=== PATIENT | female | born 1985 | race Caucasian/White ===

== ENCOUNTER 2020-03-17 12:39 | Day surgery (SDC) | payer OTHER ==
[2020-03-13 14:32] VITALS: BMI 39.0
[2020-03-17] MEDS ORDERED: LIDOCAINE HCL/PF 2% SDV 5ML VIAL ONE (13:03)
[2020-03-17] MEDS ORDERED: PROPOFOL 20 ML ONE (13:03)
[2020-03-17 13:26] VITALS: TEMP 97.8
[2020-03-17 13:41] VITALS: BP 114/65; PULSE 75
--- NOTE | 2020-03-21 22:56 | OP ---
DATE OF OPERATION: 03/17/2020 PREOPERATIVE DIAGNOSIS: Weight gain after prior bariatric surgery. POSTOPERATIVE DIAGNOSIS: Dilated gastric sleeve. PROCEDURE: Upper endoscopy/esophagogastroduodenoscopy. SPECIMEN: None. ANESTHESIA: MAC. REASON FOR PROCEDURE: This is a 34-year-old female who had a prior bariatric procedure to evaluate anatomy for weight regain. An upper endoscopy was planned. The risks and benefits of the surgery were explained and included bleeding, infection, injury to surrounding structures, perforation of esophagus, stomach, bowel, NH, DVT, PE as some of the complications. Patient signed informed consent. DESCRIPTION OF PROCEDURE: The patient was placed in the left lateral decubitus position, the bite block was placed by the nursing staff. A timeout was performed. MAC was given to the patient by anesthesia. The endoscope was placed into the patient's mouth and advanced into the esophagus and the stomach up to the level of the pylorus. The sleeve was noted to be somewhat dilated. No other gross abnormalities were noted. The stomach was suctioned, and the endoscope fully removed intact. Patient tolerated procedure well and transferred to recovery room in stable condition. EVONNE AVINA M.D. [id number] MTDD
== END 2020-03-17 13:50 | disposition home or self-care (01) ==
LOC: FASU 12:39
PROVIDERS: ATTEND Surgery
PROC: 0DJ08ZZ Inspection of Upper Intestinal Tract, Via Natural or Artificial Opening Endoscopic (ICD-10-PCS; principal; 2020-03-17 13:06)
DX: K95.89 Other complications of other bariatric procedure (principal); R63.5 Abnormal weight gain; Z98.84 Bariatric surgery status
CPT/HCPCS: 84703

== ENCOUNTER 2020-04-16 09:53 | Inpatient (IN) | payer OTHER ==
--- NOTE | 2020-04-16 10:13 | BHS.RME ---
Substance Use & Tx History - Substance Use History Alcohol Substance amount: 10 beers Frequency of use: Daily Substance route: Oral Date of Last Use: 04/16/20 Physical/Psych/Mental Status - Behavior General Behavior: Increased activity (restlessness, agitation) Eye Contact: Normal - Cooperativeness Cooperativeness: Cooperative - Thinking Thought Processes: Tight, Logical, Goal Directed Thought content: Future oriented - Physical Health Problems Is patient presently having any pain?: No Does patient presently have any injuries (include location): No Does patient currently have a fever: No Is patient : No CIWA Nausea/Vomitin Muscle Tremors: 4-Moderate,w/Arms Extend Anxiety: 2 Agitation: 3 Paroxysmal Sweats: 3 Orientation: 0-Oriented Tacttile Disturbances: 0-None Auditory Disturbances: 0-None Visual Disturbances: 2-Mild Sensitivity Headache: 2-Mild CIWA-Ar Total Score: 21
--- NOTE | 2020-04-16 10:24 | HP ---
CIWA Score Nausea/Vomitin Muscle Tremors: 4-Moderate,w/Arms Extend Anxiety: 2 Agitation: 3 Paroxysmal Sweats: 3 Orientation: 0-Oriented Tacttile Disturbances: 0-None Auditory Disturbances: 0-None Visual Disturbances: 2-Mild Sensitivity Headache: 2-Mild CIWA-Ar Total Score: 21 - Admission Criteria OASAS Guidelines: Admission for Medically Managed Detox: Requires at least one of the followin. CIWA greater than 12 2. Seizures within the past 24 hours 3. Delirium tremens within the past 24 hours 4. Hallucinations within the past 24 hours 5. Acute intervention needed for co occurring medical disorder 6. Acute intervention needed for co occurring psychiatric disorder 7. Severe withdrawal that cannot be handled at a lower level of care (continued vomiting, continued diarrhea, abnormal vital signs) requiring intravenous medication and/or fluids 8. 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 She has been drinking heavily since the age of 32. 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 PMH: None PSurg: Gastric sleeve placed 10 years ago Psych: Bipolar, Depression (latuda and hydroxyzine) Lives with parents in [place] Has no legal issues pending. NAVEED=0.000 CIWA=21 Urine Tox: THC does not use marijuana but in bars people smoke marijuana Patient meets criteria for admission as she is at high risk for relapse and she has psychiatric co-morbidity. 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 Loss EENT: reports: No Symptoms Reported Respiratory: reports: No Symptoms reported Cardiac: reports: No Symptoms Reported GI: reports: No Symptoms Reported : reports: No Symptoms Reported Musculoskeletal: reports: No Symptoms Reported Integumentary: reports: No Symptoms Reported Neuro: reports: Headache, Tremors Endocrine: reports: No Symptoms Reported Hematology: reports: No Symptoms Reported Psychiatric: reports: Judgement Intact, Mood/Affect Appropiate, Orientated x3, Agitated, Anxious Other Systems: Reviewed and Negative Patient History - Patient Medical History Hx Anemia: No Hx Asthma: No Hx Chronic Obstructive Pulmonary Disease (COPD): No Hx Cancer: No Hx Cardiac Disorders: No Hx Congestive Heart Failure: No Hx Hypertension: No Hx Hypercholesterolemia: No Hx Pacemaker: No HX Cerebrovascular Accident: No Hx Seizures: No Hx Dementia: No Hx Diabetes: No Hx Gastrointestinal Disorders: No Hx Liver Disease: No Hx Genitourinary Disorders: No Hx Renal Disease (ESRD): No Hx Thyroid Disease: No Hx Human Immunodeficiency Virus (HIV): No Hx Hepatitis C: No Hx Depression: No - Patient Surgical History Past Surgical History: No Hx Abdominal Surgery: Yes (gastric sleeve) Anesthesia Reaction: No - PPD History Previous Implant?: Yes Documented Results: Negative w/o proof Implanted On Prior [facility] Admission?: No Date: 03/30/19 Results: negative PPD to be Administered?: Yes - Reproductive History Last Menstrual Period: 11/30/12 - Smoking Cessation Smoking history: Never smoked Have you smoked in the past 12 months: No Aproximately how many cigarettes per day: 0 Hx Chewing Tobacco Use: No Initiated information on smoking cessation: No - Substances abused Alcohol Substance route: Oral Frequency: Daily Amount used: 10 beers Age of first use: 12 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) Admission Physical Exam [facility] - Physical General Appearance: Yes: Moderate Distress, Tremorous, Irritable, Sweating, Anxious HEENTM: Yes: EOMI, Hearing grossly Normal, Normal ENT Inspection, Normocephalic, Normal Voice, WILLA, Pharynx Normal, Tm's normal Respiratory: Yes: Chest Non-Tender, Lungs Clear, Normal Breath Sounds, No Respi ratory Distress, No Accessory Muscle Use Neck: Yes: No masses,lesions,Nodules, Supple, Trachea in good position Breast: Yes: Breast Exam Deferred Cardiology: Yes: Regular Rhythm, Regular Rate, S1, S2 Abdominal: Yes: Normal Bowel Sounds, Non Tender, Soft, Protuberent Genitourinary: Yes: Within Normal Limits Back: Yes: Normal Inspection Musculoskeletal: Yes: full range of Motion, Gait Steady, Pelvis Stable Extremities: Yes: Normal Capillary Refill, Normal Inspection, Normal Range of Motion, Non-Tender 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 NML intact, Fully Oriented, Alert, Motor Strength 5/5, Normal Mood/Affect, Normal Response Integumentary: Yes: Normal Color, Dry, Warm Lymphatic: Yes: Within Normal Limits - Diagnostic (1) Alcohol dependence with withdrawal Current Visit: Yes Status: Acute (2) Obesity Current Visit: Yes Status: Acute (3) H/O gastric bypass Current Visit: Yes Status: Acute (4) Bipolar 1 disorder, depressed, full remission Current Visit: Yes Status: Acute Cleared for Admission [facility] - Detox or Rehab [facility] Level of Care: Medically Managed Detox Regimen/Protocol: Librium Claeared for Rehab Admission: No Screened but not Admitted - Documentation of Visit Screened but not Admitted: No Breathalyzer - Breathalyzer Breathalyzer: 0 Vital Signs - Vital Signs Vital signs refused: No Temperature: 97.3 F Temperature source: Oral Pulse Rate: 81 Respiratory Rate: 19 Blood Pressure: 150/84 BP Location: Left Arm Blood Pressure position: Sitting - Height Height: 5 ft 6 in - Weight Weight: 244 lb Weight measurement method: Standing scale - BMI Body Mass Index (BMI): 39.4 - Bowel Function Bowel Movement: No Urine Drug Screen - Test Device Lot number: [id number] Expiration date: 04/01/22 (denies marijuana use) - Control Is test valid?: Yes - Results Drug screen NEGATIVE: No Urine drug screen results: THC-Marijuana Inpatient Rehab Admission - Rehab Decision to Admit Inpatient rehab admission?: No
[2020-04-16 10:35] VITALS: BMI 39.4
[2020-04-16] MEDS ORDERED: IBUPROFEN 400 MG TABLET (FP) PO PRN (10:35)
[2020-04-16] MEDS ORDERED: chlordiazePOXIDE HCL 25 MG CAPSULE PO PRN (10:35)
[2020-04-16] MEDS ORDERED: BISMUTH SUBSALICYLATE 524 MG/30 ML UD PO PRN (10:35)
[2020-04-16] MEDS ORDERED: MAGNESIUM HYDROX 2400MG/30ML ORAL SUSPENSION 30 ML CUP PO PRN (10:35)
[2020-04-16] MEDS ORDERED: MAG HYDROX/AL HYDROX/SIMETH 30 ML UNIT-DOSE CUP PO PRN (10:35)
[2020-04-16] MEDS ORDERED: ACETAMINOPHEN 325 MG TABLET (FP) PO PRN (10:35)
[2020-04-16] MEDS ORDERED: MAGNESIUM CITRATE 300 ML BOTTLE PO PRN (10:35)
[2020-04-16] MEDS ORDERED: MENTHOL/PHENOL 1 EACH UD MM PRN (10:35)
[2020-04-16] MEDS ORDERED: ONDANSETRON *ODT* 4 MG TABLET SL ONE (12:00)
[2020-04-16] MEDS: ACETAMINOPHEN 325 MG TABLET (FP) PO PRN ×2 (12:12→18:15)
[2020-04-16] MEDS: chlordiazePOXIDE HCL 25 MG CAPSULE PO SCH ×3 (12:12→22:39)
[2020-04-16] MEDS: PRENATAL VITAMINS W/ FOLIC ACID TABLET (FP) PO SCH (12:13)
--- NOTE | 2020-04-16 12:49 | EKG ---
Test Reason : Blood Pressure : / mmHG Vent. Rate : 083 BPM Atrial Rate : 083 BPM P-R Int : 136 ms QRS Dur : 094 ms QT Int : 366 ms P-R-T Axes : 058 063 040 degrees QTc Int : 430 ms NORMAL SINUS RHYTHM WITH SINUS ARRHYTHMIA NORMAL ECG NO PREVIOUS ECGS AVAILABLE Confirmed by Morris Keene MD ([id number]) on 04/16/2020 12:48:42 PM Referred By: Confirmed By:Morris Keene MD
[2020-04-16] MEDS: hydrOXYzine PAMOATE 25 MG CAPSULE (FP) PO SCH ×3 (13:12→22:39)
--- NOTE | 2020-04-16 14:13 | CONSULT ---
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 Refer to addiction counselor's summary for further information Medical History: Significant for history of gastric sleeve for obesity 10 years ago Psychiatric History: This is patient's admission to this facility. She reports that her first psychiatric contact occured in 2017 when she was admited to [facility] for suicidal attempt by taking slleping pills with alcohol. She said that she was diagnosed with Bipolar Disorder and started on psychotropic medications. Reports that she currently sees Dr Downs, a private psychiatrist as well as a therapist in the [place] and she is prescribed Latuda 60 mg/hs and hydroxyzine 25 or 50 mg HS. At present, denies experiencing psychotic, manic or depressive symptoms, S/H ideations. However, reports sleeping poorly Physical/Sexual Abuse/Trauma History: Denies history of abuse as a child or DV relationship as an adult Mental Status Exam - Mental Status Exam Alert and Oriented to: Time, Place, Person Cognitive Function: Fair Patient Appearance: Well Groomed Mood: Hopeful, Euthymic Affect: Appropriate Patient Behavior: Cooperative Speech Pattern: Clear Voice Loudness: Normal Thought Process: Intact, Goal Oriented Thought Disorder: Not Present Hallucinations: Denies Suicidal Ideation: Denies Homicidal Ideation: Denies Insight/Judgement: Poor Sleep: Poorly Appetite: Good Muscle strength/Tone: Normal Gait/Station: Normal Psychiatric Findings - Problem List ([place] 1, 2,3) (1) Bipolar disorder Current Visit: Yes Status: Chronic (2) Alcohol-induced sleep disorder Current Visit: Yes Status: Acute (3) Alcohol dependence with withdrawal Current Visit: Yes Status: Acute (4) Obesity Current Visit: Yes Status: Chronic (5) Stomach sleeper Current Visit: Yes Status: Chronic - Initial Treatment Plan Initial Treatment Plan: 1) Continue Latuda 60 mg po HS and Hydroxyzine 50 mg po HS. 2) Continue inpatient detoxification
[2020-04-16 17:57] LABS: ALBUMIN 3.8 g/dl (3.4-5.0); BILIRUBIN,TOTAL 0.6 mg/dL (0.2-1); BLOOD UREA NITROGEN 14.1 mg/dL (7-18); CALCIUM 9.4 mg/dL (8.5-10.1); CREATININE 0.7 mg/dL (0.55-1.3); POTASSIUM 4.2 mmol/L (3.5-5.1)
[2020-04-16 18:00] LABS: HEMATOCRIT 38.1 % (32.4-45.2); HEMOGLOBIN 12.5 GM/dL (10.7-15.3); MCH 28.9 pg (25.7-33.7); MCHC 32.9 g/dl (32.0-36.0); MEAN CELL VOLUME 87.9 fl (80-96); MEAN PLT VOLUME 8.3 fl (7.5-11.1); PLATELET COUNT 447 K/MM3 (134-434); RBC 4.34 M/mm3 (3.60-5.2); RDW 14.8 % (11.6-15.6); WHITE BLOOD COUNT 7.3 K/mm3 (4.0-10.0)
[2020-04-16] MEDS: MELATONIN 5 MG TABLETS PO SCH (22:39)
[2020-04-16] MEDS: THIAMINE HCL 100 MG TABLET (FP) PO SCH (22:39)
[2020-04-17] MEDS: hydrOXYzine PAMOATE 25 MG CAPSULE (FP) PO SCH ×5 (06:00→22:05)
[2020-04-17] MEDS: chlordiazePOXIDE HCL 25 MG CAPSULE PO SCH ×4 (06:00→22:05)
--- NOTE | 2020-04-17 09:23 | PN ---
S CIWA - CIWA Score Nausea/Vomitin-Mild Nausea/No Vomiting Muscle Tremors: 3 Anxiety: 4-Mod. Anxious/Guarded Agitation: 1-Slight > Activity Paroxysmal Sweats: 2 Orientation: 1-Uncertain about Date (date of week) Tacttile Disturbances: 0-None Auditory Disturbances: 0-None Visual Disturbances: 2-Mild Sensitivity Headache: 2-Mild CIWA-Ar Total Score: 16 BHS Progress Note (SOAP) Subjective: 35 years old female was admitted on 04/16/20 for alcohol withdrawal sx management treating with librium detox regiment ate breakfast in room resting in bed feels tired not much sleep last night prefers to rest in bed limited conversation with staff Objective: 04/17/20 09:25 Vital Signs - 24 hr 04/16/20 04/16/20 04/16/20 10:35 10:46 12:07 Temperature 97.3 F L 97.3 F L 97.3 F L Pulse Rate 81 81 79 Respiratory 19 19 18 Rate Blood Pressure 150/84 150/84 115/81 O2 Sat by Pulse 99 Oximetry (%) 04/16/20 04/16/20 04/17/20 16:52 21:19 06:51 Temperature 97.1 F L 96.8 F L 97.1 F L Pulse Rate 75 96 H 80 Respiratory 18 18 18 Rate Blood Pressure 96/55 L 120/77 116/79 O2 Sat by Pulse 97 98 Oximetry (%) 04/17/20 08:47 Temperature 98.6 F Pulse Rate 105 H Respiratory 18 Rate Blood Pressure 124/84 O2 Sat by Pulse Oximetry (%) Laboratory Tests 04/16/20 04/16/20 04/16/20 10:30 10:40 10:40 WBC 7.3 RBC 4.34 Hgb 12.5 Hct 38.1 MCV 87.9 MCH 28.9 MCHC 32.9 RDW 14.8 Plt Count 447 H D MPV 8.3 Sodium 137 Potassium 4.2 Chloride 102 Carbon Dioxide 27 Anion Gap 7 L BUN 14.1 Creatinine 0.7 Est GFR (CKD-EPI)AfAm 131.94 Est GFR (CKD-EPI)NonAf 113.84 Random Glucose 84 Calcium 9.4 Total Bilirubin 0.6 AST 29 ALT 24 Alkaline Phosphatase 84 Total Protein 8.0 Albumin 3.8 Syphilis Serology HIV Ag/Ab Combo Qual Negative 04/16/20 10:40 WBC RBC Hgb Hct MCV MCH MCHC RDW Plt Count MPV Sodium Potassium Chloride Carbon Dioxide Anion Gap BUN Creatinine Est GFR (CKD-EPI)AfAm Est GFR (CKD-EPI)NonAf Random Glucose Calcium Total Bilirubin AST ALT Alkaline Phosphatase Total Protein Albumin Syphilis Serology Non-reactive HIV Ag/Ab Combo Qual covid pending Assessment: 04/17/20 09:26 alcohol withdrawal Plan: librium regiment
[2020-04-17] MEDS: PRENATAL VITAMINS W/ FOLIC ACID TABLET (FP) PO SCH (10:01)
[2020-04-17] MEDS: ACETAMINOPHEN 325 MG TABLET (FP) PO PRN (10:02)
[2020-04-17] MEDS: MELATONIN 5 MG TABLETS PO SCH (22:04)
[2020-04-17] MEDS: THIAMINE HCL 100 MG TABLET (FP) PO SCH (22:05)
[2020-04-18] MEDS: hydrOXYzine PAMOATE 25 MG CAPSULE (FP) PO SCH ×5 (06:14→22:16)
[2020-04-18] MEDS: chlordiazePOXIDE HCL 25 MG CAPSULE PO SCH ×4 (06:14→22:16)
[2020-04-18] MEDS: ACETAMINOPHEN 325 MG TABLET (FP) PO PRN (06:15)
[2020-04-18] MEDS: PRENATAL VITAMINS W/ FOLIC ACID TABLET (FP) PO SCH (10:01)
--- NOTE | 2020-04-18 10:21 | PN ---
[facility] CIWA - CIWA Score Nausea/Vomitin-No Nausea/No Vomiting Muscle Tremors: None Anxiety: 3 Agitation: 1-Slight > Activity Paroxysmal Sweats: 3 Orientation: 0-Oriented Tacttile Disturbances: 0-None Auditory Disturbances: 0-None Visual Disturbances: 0-None Headache: 2-Mild CIWA-Ar Total Score: 9 BHS Progress Note (SOAP) Subjective: c/o headache, sweats, anxiety, and irritability. Objective: 04/18/20 10:20 Vital Signs 04/18/20 04/18/20 07:08 08:57 Temperature 97.1 F L 96.1 F L Pulse Rate 96 H 68 Respiratory 18 18 Rate Blood Pressure 113/74 111/66 O2 Sat by Pulse 98 Oximetry (%) Laboratory Last Values WBC 7.3 K/mm3 (4.0-10.0) 04/16/20 10:40 RBC 4.34 M/mm3 (3.60-5.2) 04/16/20 10:40 Hgb 12.5 GM/dL (10.7-15.3) 04/16/20 10:40 Hct 38.1 % (32.4-45.2) 04/16/20 10:40 MCV 87.9 fl (80-96) 04/16/20 10:40 MCH 28.9 pg (25.7-33.7) 04/16/20 10:40 MCHC 32.9 g/dl (32.0-36.0) 04/16/20 10:40 RDW 14.8 % (11.6-15.6) 04/16/20 10:40 Plt Count 447 K/MM3 (134-434) H D 04/16/20 10:40 MPV 8.3 fl (7.5-11.1) 04/16/20 10:40 Sodium 137 mmol/L (136-145) 04/16/20 10:40 Potassium 4.2 mmol/L (3.5-5.1) 04/16/20 10:40 Chloride 102 mmol/L (98-107) 04/16/20 10:40 Carbon Dioxide 27 mmol/L (21-32) 04/16/20 10:40 Anion Gap 7 MMOL/L (8-16) L 04/16/20 10:40 BUN 14.1 mg/dL (7-18) 04/16/20 10:40 Creatinine 0.7 mg/dL (0.55-1.3) 04/16/20 10:40 Est GFR (CKD-EPI)AfAm 131.94 04/16/20 10:40 Est GFR (CKD-EPI)NonAf 113.84 04/16/20 10:40 Random Glucose 84 mg/dL (74-106) 04/16/20 10:40 Calcium 9.4 mg/dL (8.5-10.1) 04/16/20 10:40 Total Bilirubin 0.6 mg/dL (0.2-1) 04/16/20 10:40 AST 29 U/L (15-37) 04/16/20 10:40 ALT 24 U/L (13-61) 04/16/20 10:40 Alkaline Phosphatase 84 U/L (45-117) 04/16/20 10:40 Total Protein 8.0 g/dl (6.4-8.2) 04/16/20 10:40 Albumin 3.8 g/dl (3.4-5.0) 04/16/20 10:40 Syphilis Serology Non-reactive (NONREACTIVE) 04/16/20 10:40 COVID-19 (ELVER) Not detected (Not Detected) 04/16/20 12:30 HIV Ag/Ab Combo Qual Negative (NEGATIVE) 04/16/20 10:30 Labs noted. Assessment: 04/18/20 10:21 AOX3, in no acute respiratory distress. Full ROM, ambulating in the unit. Withdrawal symptoms. Plan: continue detox.
--- NOTE | 2020-04-18 14:14 | PN ---
[facility] Progress Note Note: Psychiatry Attending's note (follow-up) : Called by nurse to enter order for lurasidone. Chart reviewed. Dr Morales's note of 04/16/20 : read. Treatment plan is revisited. Patient seen. Ms Rendon approached MD in the office. She confirms latuda as her maintenance medication (60 mg/hs). She also reports that she has NOT been compliant for past TWO weeks. " I was drinking heavily and I did not want to mix alcohol with my medications." Psychoeducation provided to patient. Side effects/benefits are discussed. Ms Rendon granted consent (verbal) to MD. Agrees to be restarted on 40 mg at HS. For continuity of care. Monitor clinical response.
[2020-04-18] MEDS: MELATONIN 5 MG TABLETS PO SCH (22:16)
[2020-04-18] MEDS: LURASIDONE HCL 40 MG TABLET PO SCH (22:16)
[2020-04-18] MEDS: THIAMINE HCL 100 MG TABLET (FP) PO SCH (22:16)
[2020-04-19] MEDS ORDERED: chlordiazePOXIDE HCL 10 MG CAPSULE PO PRN
[2020-04-19] MEDS: METHOCARBAMOL 500 MG TABLET PO PRN ×2 (06:01→22:57)
[2020-04-19] MEDS: chlordiazePOXIDE HCL 10 MG CAPSULE PO SCH ×4 (06:05→22:53)
[2020-04-19] MEDS: PRENATAL VITAMINS W/ FOLIC ACID TABLET (FP) PO SCH (10:23)
--- NOTE | 2020-04-19 13:20 | PN ---
S CIWA - CIWA Score Nausea/Vomitin-No Nausea/No Vomiting Muscle Tremors: None Anxiety: 2 Agitation: 1-Slight > Activity Paroxysmal Sweats: 2 Orientation: 0-Oriented Tacttile Disturbances: 0-None Auditory Disturbances: 0-None Visual Disturbances: 0-None Headache: 2-Mild CIWA-Ar Total Score: 7 BHS Progress Note (SOAP) Subjective: c/o anxiety, sweats, and headache. Objective: 04/19/20 13:17 Vital Signs 04/19/20 04/19/20 06:51 09:00 Temperature 98.1 F 97.8 F Pulse Rate 135 H 112 H Respiratory 18 20 Rate Blood Pressure 130/89 110/79 O2 Sat by Pulse 97 Oximetry (%) Laboratory Last Values WBC 7.3 K/mm3 (4.0-10.0) 04/16/20 10:40 RBC 4.34 M/mm3 (3.60-5.2) 04/16/20 10:40 Hgb 12.5 GM/dL (10.7-15.3) 04/16/20 10:40 Hct 38.1 % (32.4-45.2) 04/16/20 10:40 MCV 87.9 fl (80-96) 04/16/20 10:40 MCH 28.9 pg (25.7-33.7) 04/16/20 10:40 MCHC 32.9 g/dl (32.0-36.0) 04/16/20 10:40 RDW 14.8 % (11.6-15.6) 04/16/20 10:40 Plt Count 447 K/MM3 (134-434) H D 04/16/20 10:40 MPV 8.3 fl (7.5-11.1) 04/16/20 10:40 Sodium 137 mmol/L (136-145) 04/16/20 10:40 Potassium 4.2 mmol/L (3.5-5.1) 04/16/20 10:40 Chloride 102 mmol/L (98-107) 04/16/20 10:40 Carbon Dioxide 27 mmol/L (21-32) 04/16/20 10:40 Anion Gap 7 MMOL/L (8-16) L 04/16/20 10:40 BUN 14.1 mg/dL (7-18) 04/16/20 10:40 Creatinine 0.7 mg/dL (0.55-1.3) 04/16/20 10:40 Est GFR (CKD-EPI)AfAm 131.94 04/16/20 10:40 Est GFR (CKD-EPI)NonAf 113.84 04/16/20 10:40 Random Glucose 84 mg/dL (74-106) 04/16/20 10:40 Calcium 9.4 mg/dL (8.5-10.1) 04/16/20 10:40 Total Bilirubin 0.6 mg/dL (0.2-1) 04/16/20 10:40 AST 29 U/L (15-37) 04/16/20 10:40 ALT 24 U/L (13-61) 04/16/20 10:40 Alkaline Phosphatase 84 U/L (45-117) 04/16/20 10:40 Total Protein 8.0 g/dl (6.4-8.2) 04/16/20 10:40 Albumin 3.8 g/dl (3.4-5.0) 04/16/20 10:40 Syphilis Serology Non-reactive (NONREACTIVE) 04/16/20 10:40 COVID-19 (ELVER) Not detected (Not Detected) 04/16/20 12:30 HIV Ag/Ab Combo Qual Negative (NEGATIVE) 04/16/20 10:30 Labs noted. Assessment: 04/19/20 13:17 AOX3, in no acute respiratory distress. Full ROM, ambulating in the unit. Withdrawal symptoms. Plan: continue detox.
[2020-04-19] MEDS: ACETAMINOPHEN 325 MG TABLET (FP) PO PRN (16:33)
--- NOTE | 2020-04-19 22:43 | PN ---
[facility] Progress Note Note: SEEN FOR C/O TACHYCARDIA. STATES SHE HAS BEEN TACHY SINCE YESTERDAY AND WANTS TO GO TO THE ER. REPORTS INTERMITTENT SOB, ANXIETY.DENIES C.P., PALPITATIONS, WEAKNESS, DIZZINESS.SHE REPORTS SHE IS ON VISTARIL WHICH HELPS BUT IS UNSURE WHY IT WAS STOPPED. CLIENT IS A/O X3 NAD, ANXIOUS, SPEAKING FULL SENTENCES W/O DIFFICULTY CV- TACHY- APICAL PULSE 110 LUNGS- CTAB- O2 SAT 100 % RA AMBULATING UNIT W/O DIFFICULTY. EKG- SINUS TACHY VENT RATE 112 BPM Vital Signs Temperature 97.7 F 04/19/20 22:49 Pulse Rate 119 H 04/19/20 22:49 Respiratory Rate 18 04/19/20 22:49 Blood Pressure 117/83 04/19/20 22:49 O2 Sat by Pulse Oximetry (%) 100 04/19/20 22:49 ANXIETY, WITHDRAWAL SX'S P- VISTARIL PRN ORDER DC, by psych and to initiate vistaril 50 mg po qhs noted in consult. never ordered. VISTARIL 50 MG X 1 DOSE CONT DETOX MONITOR CLINICALLY PSYCH EVAL
[2020-04-19] MEDS: THIAMINE HCL 100 MG TABLET (FP) PO SCH (22:53)
[2020-04-19] MEDS: LURASIDONE HCL 40 MG TABLET PO SCH (22:53)
[2020-04-19] MEDS: MELATONIN 5 MG TABLETS PO SCH (22:53)
[2020-04-19] MEDS ORDERED: hydrOXYzine PAMOATE 50 MG CAPSULE (FP) PO ONE (23:07)
[2020-04-20] MEDS ORDERED: chlordiazePOXIDE HCL 10 MG CAPSULE PO SCH (05:00)
[2020-04-20] MEDS: ACETAMINOPHEN 325 MG TABLET (FP) PO PRN (06:20)
[2020-04-20 07:06] VITALS: BP 88/55; PULSE 130
[2020-04-20 07:07] VITALS: TEMP 98.7
--- NOTE | 2020-04-20 07:11 | PN ---
[facility] Progress Note Note: SEEN FOR TEMPERATURE SPIKE. CLIENT NOW REPORTS SHE SHE MAY HAVE TONSILLITIS , C/O SORE THROAT WITH DIFFICULTY TO SWALLOW. C/O CHILLS, SWEATS, DID NOT SLEEP WELL LAST NIGHT. DENIES C.P, SOB, N/V/D/. REQUESTING TO SIGN OUT. STATES WANT [place]. "I KNOW MY BODY AND i WANT TO LEAVE. Vital Signs - 8 hr 04/20/20 04/20/20 04/20/20 00:59 02:10 06:22 Temperature 98.7 F 101.6 F H Pulse Rate 119 H 130 H Respiratory 16 16 Rate Blood Pressure 131/83 88/55 L O2 Sat by Pulse 95 Oximetry (%) 04/20/20 07:06 Temperature 98.7 F Pulse Rate Respiratory Rate Blood Pressure O2 Sat by Pulse Oximetry (%) CLIENT SEEN SEATED AT BESIDE A/O X3, IRRITABLE, ANXIOUS REQUESTING TO SIGN OUT NCAT, PERRLA, EOMI NECK- NEG LAD THROAT- MOIST MUCUS MEMBRANES, NO ERYTHEMA, EXUDATE, TONSILS NL CV- TACHY LUNGS- CTAB SKIN, WARM, MOIST A- WITHDRAWAL , TACHYCARDIA, ANXIETY, P- REPEAT TEMP (SCANNER) AFTER TYLENOL LESS THAN 30 MINUTES AFEBRILE. CLIENT DOES NOT APPEAR ACUTELY ILL. SX'S OF ANXIETY PRESENT CLIENT IS NOT OPEN TO DISCUSSION SHE WANTS TO LEAVE. OFFERED TO SEND HER TO [facility] ER FOR EVAL. CLIENT DECLINES. CLIENT WISHES TO SIGN OUT AMA STATES WILL FOLLOW UP AT [facility] SX OF ABRUPTING TXMENT SHARED TO INCLUDE SEIZURES, AND . CLIENT ACCEPTS
--- NOTE | 2020-04-20 08:34 | DS ---
[facility] Detox Discharge Summary Admission Date: 04/16/20 Discharge Date: 04/20/20 - History Present History: Alcohol Dependence Additional Comments: 35 years old female admitted on 04/16/20 for alcohol withdrawal sx management treated with librium detox regiment seen by psychiatrist kalpana sullivan and hydroxyzijonas ms izaguirre prefers to go home today and visit her primary care provider who she with x 3 years ms izaguirre was scheduled for tonsillectomy but ENT "rather wait" General Appearance: Yes: no Distress, mild Tremorous, less Irritable, no Sweating, mild Anxious HEENTM: Yes: EOMI, Hearing grossly Normal, Normal ENT Inspection, Normocephalic, Normal Voice, WILLA, Pharynx Normal, Tm's normal Respiratory: Yes: Chest Non-Tender, Lungs Clear, Normal Breath Sounds, No Respiratory Distress, No Accessory Muscle Use Neck: Yes: No masses,lesions,Nodules, Supple, Trachea in good position Breast: Yes: Breast Exam Deferred Cardiology: Yes: Regular Rhythm, Regular Rate, S1, S2 Abdominal: Yes: Normal Bowel Sounds, Non Tender, Soft, Protuberent Genitourinary: Yes: Within Normal Limits Back: Yes: Normal Inspection Musculoskeletal: Yes: full range of Motion, Gait Steady, Pelvis Stable Extremities: Yes: Normal Capillary Refill, Normal Inspection, Normal Range of Motion, Non-Tender 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: 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 NML intact, Fully Oriented, Alert, Motor Strength 5/5, Normal Mood/Affect, Normal Response Integumentary: Yes: Normal Color, Dry, Warm Lymphatic: Yes: Within Normal Limits Pertinent Past History: time for discharge 40 minutes treatment treterrell met with ms izaguirre to discuss the benefits of librium completion ms izaguirre prefers to leave the detox today instead of estimated discharge day of 04/21/20 ms izaguirre prefers returning to her Interface program for alcohol abuse treatment - Physical Exam Results Vital Signs: Vital Signs Temperature 98.7 F 04/20/20 07:06 Pulse Rate 130 H 04/20/20 06:22 Respiratory Rate 16 04/20/20 06:22 Blood Pressure 88/55 L 04/20/20 06:22 O2 Sat by Pulse Oximetry (%) 95 04/20/20 06:22 Pertinent Admission Physical Exam Findings: alcohol withdrawal Laboratory Tests 04/16/20 04/16/20 04/16/20 10:30 10:40 10:40 WBC 7.3 RBC 4.34 Hgb 12.5 Hct 38.1 MCV 87.9 MCH 28.9 MCHC 32.9 RDW 14.8 Plt Count 447 H D MPV 8.3 Sodium 137 Potassium 4.2 Chloride 102 Carbon Dioxide 27 Anion Gap 7 L BUN 14.1 Creatinine 0.7 Est GFR (CKD-EPI)AfAm 131.94 Est GFR (CKD-EPI)NonAf 113.84 Random Glucose 84 Calcium 9.4 Total Bilirubin 0.6 AST 29 ALT 24 Alkaline Phosphatase 84 Total Protein 8.0 Albumin 3.8 Syphilis Serology COVID-19 (ELVER) HIV Ag/Ab Combo Qual Negative 04/16/20 04/16/20 10:40 12:30 WBC RBC Hgb Hct MCV MCH MCHC RDW Plt Count MPV Sodium Potassium Chloride Carbon Dioxide Anion Gap BUN Creatinine Est GFR (CKD-EPI)AfAm Est GFR (CKD-EPI)NonAf Random Glucose Calcium Total Bilirubin AST ALT Alkaline Phosphatase Total Protein Albumin Syphilis Serology Non-reactive COVID-19 (ELVER) Not detected HIV Ag/Ab Combo Qual lab noted - Treatment Hospital Course: Detox Protocol Followed, Detoxed Safely, Responded well, Discharged Condition Good, Rehab Referral Accepted Patient has Accepted a Rehab Referral to: Interface - Medication Discharge Medications: Ambulatory Orders Famotidine [Pepcid -] 20 mg PO BID #0 tablet 12/23/12 Hydrocodone Bit/Acetaminophen [Vicodin 5-500mg Tablet -] 0 - 1 tab PO QID PRN #0 tab 12/23/12 Gabapentin 300 mg PO DAILY 03/13/20 Hydroxyzine HCl 25 mg PO DAILY 03/13/20 Lurasidone HCl [Latuda] 60 mg PO HS 03/13/20 - Diagnosis (1) Alcohol dependence with withdrawal Current Visit: Yes Status: Acute Qualifiers: Complication of substance-induced condition: uncomplicated Qualified Code(s): F10.230 - Alcohol dependence with withdrawal, uncomplicated (2) Bipolar 1 disorder, depressed, full remission Current Visit: Yes Status: Suspected (3) H/O gastric bypass Current Visit: Yes Status: Chronic (4) Stomach sleeper Current Visit: Yes Status: Chronic - AMA Did Patient Leave Against Medical Advice: No CIWA Score - CIWA Score Nausea/Vomitin-No Nausea/No Vomiting Muscle Tremors: None Anxiety: 1-Mildly Anxious Agitation: 0-Normal Activity Paroxysmal Sweats: 1-Minimal Palms Moist Orientation: 0-Oriented Tacttile Disturbances: 0-None Auditory Disturbances: 0-None Visual Disturbances: 0-None Headache: 1-Very Mild CIWA-Ar Total Score: 3
[2020-04-21] MEDS ORDERED: chlordiazePOXIDE HCL 10 MG CAPSULE PO ONE (05:00)
--- NOTE | 2020-04-21 18:28 | EKG ---
Test Reason : Blood Pressure : / mmHG Vent. Rate : 112 BPM Atrial Rate : 112 BPM P-R Int : 138 ms QRS Dur : 086 ms QT Int : 306 ms P-R-T Axes : 050 063 033 degrees QTc Int : 417 ms SINUS TACHYCARDIA OTHERWISE NORMAL ECG WHEN COMPARED WITH ECG OF 18-APR-2020 22:57, NO SIGNIFICANT CHANGE WAS FOUND Confirmed by TOMMY CHUN MD ([id number]) on 04/21/2020 6:27:33 PM Referred By: Confirmed By:TOMMY CHUN MD
--- NOTE | 2020-04-21 18:28 | EKG ---
Test Reason : Blood Pressure : / mmHG Vent. Rate : 118 BPM Atrial Rate : 118 BPM P-R Int : 144 ms QRS Dur : 086 ms QT Int : 308 ms P-R-T Axes : 050 069 030 degrees QTc Int : 431 ms SINUS TACHYCARDIA OTHERWISE NORMAL ECG WHEN COMPARED WITH ECG OF 16-APR-2020 09:46, NO SIGNIFICANT CHANGE WAS FOUND Confirmed by TOMMY CHUN MD ([id number]) on 04/21/2020 6:27:42 PM Referred By: SANDRO NIEVES Confirmed By:TOMMY CHUN MD
== END 2020-04-20 08:53 | disposition home or self-care (01) | DRG 897 ==
LOC: YASAS 09:53 → Y3N 11:06
PROVIDERS: ADMIT Allergy & Immunology; ATTEND Allergy & Immunology
PROC: HZ2ZZZZ Detoxification Services for Substance Abuse Treatment (ICD-10-PCS; principal; 2020-04-16)
DX: F10.230 Alcohol dependence with withdrawal, uncomplicated (principal); F10.282 Alcohol dependence with alcohol-induced sleep disorder; F31.9 Bipolar disorder, unspecified; F41.9 Anxiety disorder, unspecified; R00.0 Tachycardia, unspecified; E66.9 Obesity, unspecified; Z68.39 Body mass index [BMI] 39.0-39.9, adult; Z91.5 Personal history of self-harm; Z98.84 Bariatric surgery status
CPT/HCPCS: 36415; 80053; 85027; 86780; 87389; 93005; 93010; Q0162; U0003

== ENCOUNTER 2020-05-22 22:21 | Inpatient (IN) | payer SELFPAY ==
[~2020-05-22 22:21] MED LIST: chlordiazePOXIDE HCL 25 MG CAPSULE PO SCH
--- OUTSIDE RECORDS SUMMARY | 2020-05-22 22:27 | XMS ---
:1985 Author Organization [facility] Care Team Providers Name Role Phone [id number], [phone] Unavailable Unavailable Re-disclosure Warning The records that you are about to access may contain information from federally- assisted alcohol or drug abuse programs. If such information is present, then the following federally mandated warning applies: This information has been disclosed to you from records protected by federal confidentiality rules (42 CFR part 2). The federal rules prohibit you from making any further disclosure of this information unless further disclosure is expressly permitted by the written consent of the person to whom it pertains or as otherwise permitted by 42 CFR part 2. A general authorization for the release of medical or other information is NOT sufficient for this purpose. The Federal rules restrict any use of the information to criminally investigate or prosecute any alcohol or drug abuse patient.The records that you are about to access may contain highly sensitive health information, the redisclosure of which is protected by Article 27-F of the [place] State Public Health law. If you continue you may haveaccess to information: Regarding HIV / AIDS; Provided by facilities licensed or operated by the [facility] Office of Mental Health; or Provided by the [facility] Office for People With Developmental Disabilities. If such information is present, then the following [facility] mandated warning applies: This information has been disclosed to you from confidential records which are protected by state law. State law prohibits you from making any further disclosure of this information without the specific written consent of the person to whom it pertains, or as otherwise permitted by law. Any unauthorized further disclosure in violation of state law may result in a fine or fpc sentence or both. A general authorization for the release of medical or other information is NOT sufficient authorization for further disclosure. Allergies and Adverse Reactions Type Description Substance Reaction Status Data Source(s ) No Information No Information No Information eC W[facility] ([facility] [place] [facility] No Known Allergies No Known Allergies No Known eCW2 ([facility]ies [facility] [place] [facility]) No Known Allergies No Known Allergies No Known eCW2 ([facility]ies [facility] [place] [facility]) No Known Allergies No Known Allergies No Known eCW2 ([facility] All[facility]ies [facility] [place] [facility]) No Information No Information No Information eC W2 ([facility] [place] [facility]) No Information No Information No Information eC W2 ([facility] [place] [facility]) Encounters Encounter Providers Location Date Indications Data Source(s ) [facility]2020 [facility] [place] AM EDT [place] [facility]) [facility] 02/16/2020 eCW2 ([facility] 12:[facility] [place] AM EDT [place] [facility] 02/07/2020 [facility]00 [facility] [place] AM EDT [place] [facility]) [facility] 10/15/2019 eCW2 ([facility] 12[facility] [place] AM EST [place] [facility]) [facility] 10/13/2019 eCW2 ([facility] 12[facility] [place] AM EST [place] [facility]) [facility] 10/05/2019 eCW2 ([facility] 12:[facility]:00 [facility] [place] AM EST [facility] [place] [facility]) Attender: 08/30/2019 [facility] [id number] 01:05:00 [facility] [phone] PM EST [id number] Planned [facility] 07/03/2018 eCW2 ([facility] 12:[facility] [place] AM EST [place] [facility]) [facility] 07/01/2018 eCW2 ([facility] 12:[facility] [place] AM EDT [place] [facility]) [facility] 09/23/2017 [facility]CW[facility] [place] AM EST [place] [facility]) [facility] 09/22/2017 eCW2 ([facility] 12:00:[facility] - [place] AM EST [place] [facility]) [facility] 09/08/2017 eCW2 ([facility] 12:[facility]:00 [facility] [place] AM EST [facility] [place] [facility]) [facility] 05/18/2016 eCW2 ([facility] 12:[facility]:00 [facility] [place] AM EDT [facility] [place] [facility]) [facility] 08/26/2015 eCW2 ([facility] 12:[facility] [place] AM EST [facility] [place] [facility]) [facility] 08/05/2015 eCW2 ([facility] 12:00:00 [facility] [place] AM EST [facility] [place] [facility]) [facility] 08/04/2015 eCW2 ([facility] 12:[facility]:00 [facility] [place] AM EST [facility] [place] [facility]) [facility] 08/02/2015 eCW2 ([facility] 12:[facility] [place] AM EST [facility] [place] [facility]) Immunizations Vaccine Date Status Description Data Source(s) Yessy (SAB ONLY; 02/16/2020 completed eCW2 (Pl anned [id number]) 09:35:00 AM EDT [facility] [place] [facility]) No Known Immunizations completed eCW2 ([facility] [place] [facility]) No Known Immunizations completed eCW2 ([facility] [place] [facility]) No Known Immunizations completed eCW2 ([facility] [place] [facility]) No Known Immunizations completed eCW2 ([facility] [facility]) No Known Immunizations completed eCW2 ([facility] [facility]) Medications Medication Brand Start Product Dose Route Administrative Pharm[facility] Indications Reaction Description Data Name Date Form Instructions Instructions Source(s) Paragard Paraga 02/15/ active as directe d eCW2 Intrauterin rd 2019 (Planned e Copper - Intrau 12:00: Paren thood terine 00 AM - [place] EDT [place] [facility]) Ondansetron Ondans 10/13/ suspend as dir ected eCW2 HCl 4 etron 2019 ed (Planned MG/2ML HCl 4 12:00: Parenthood MG/2ML 00 AM - [place] EST [place] [facility]) Ondansetron Ondans 10/13/ suspend as dir ected eCW2 HCl 4 etron 2019 ed (Planned MG/2ML HCl 4 12:00: Parenthood MG/2ML 00 AM - [place] EST [place] [facility]) 2 ML Ondans 10/13/ active as directed eC W2 Ondansetron etron 2019 (Planne d 2 MG/ML HCl 4 12:00: Parenthoo d Prefilled MG/2ML 00 AM - [place] Syringe EST [place] Ondansetron Incorpor at HCl 4 ed) MG/2ML 2 ML Ketoro 10/13/ active 0.5 ml one eCW 2 Ketorolac lac 2019 time (Planned Tromethamin Tromet 12:00: Pare nthood e 30 MG/ML hamine 00 AM - [place] 60 EST [place] Ketorolac MG/2ML Incorpor at Tromethamin ed) e 60 MG/2ML Cyred Cyred 07/01/ suspend 1 tablet eCW2 0.15-30 0.15-3 2017 ed (Planned MG-MCG 0 12:00: Parenthood MG-MCG 00 AM - [place] EDT [place] [facility]) Lutera Lutera 07/01/ suspend 1 tablet eC W2 0.1-20 0.1-20 2017 ed (Planned MG-MCG MG-MCG 12:00: Parenthoo d 00 AM - [place] EDT [place] [facility]) Cyred Cyred 07/01/ suspend 1 tablet eCW2 0.15-30 0.15-3 2018 ed (Planned MG-MCG 0 12:00: Parenthood MG-MCG 00 AM - [place] EDT [place] [facility]) Ondansetron Ondans 07/01/ suspend as dir ected eCW2 HCl 4 etron 2018 ed (Planned MG/2ML HCl 4 12:00: [facility] MG/2ML 00 AM - [place] EDT [place] [facility]) Lutera Lutera 07/01/ suspend 1 tablet eC W2 0.1-20 0.1-20 2018 ed (Planned MG-MCG MG-MCG 12:00: Parenthoo d 00 AM - [place] EDT [place] [facility]) Ondansetron Ondans 07/01/ suspend as dir ected eCW2 HCl 4 etron 2018 ed (Planned MG/2ML HCl 4 12:00: [facility] MG/2ML 00 AM - [place] EDT [place] [facility]) Cyred Cyred 07/01/ suspend 1 tablet eCW2 0.15-30 0.15-3 2018 ed (Planned MG-MCG 0 12:00: Parenthood MG-MCG 00 AM - [place] EDT [place] [facility]) 2 ML Ondans suspend as directed e CW2 Ondansetron etron 2017 ed (Planne d 2 MG/ML HCl 4 12:00: Parenthoo d Prefilled MG/2ML 00 AM - [place] Syringe EDT [place] Ondansetron Incorpor at HCl 4 ed) MG/2ML Lutera Lutera 07/01/ suspend 1 tablet eC W2 0.1-20 0.1-20 2018 ed (Planned MG-MCG MG-MCG 12:00: Parenthoo d 00 AM - [place] EDT [place] [facility]) Metronidazo Metron suspend 1 tabl et eCW2 le 500 MG idazol 2018 ed (Planned Oral Tablet e 500 12:00: Paren thood MG 00 AM - [place] EST [place] [facility]) Metronidazo Metron suspend 1 tabl et eCW2 le 500 MG idazol 2018 ed (Planned Oral Tablet e 500 12:00: Paren thood MG 00 AM - [place] EST [place] [facility]) Metronidazo Metron 09/08/ suspend 1 tabl et eCW2 le 500 MG idazol 2017 ed (Planned Oral Tablet e 500 12:00: Paren thood MG 00 AM - [place] EST [place] [facility]) Azithromyci Zithro suspend 2 tabl ets at eCW2 n 500 MG max 2014 ed once (Planned Oral Tablet 500mg 12:00: Paren thood [Zithromax] 00 AM - [place] Zithromax EST [place] 500mg [facility] ed) Azithromyci Zithro suspend 2 tabl ets at eCW2 n 500 MG max 2014 ed once (Planned Oral Tablet 500mg 12:00: Paren thood [Zithromax] 00 AM - [place] Zithromax EST [place] 500mg [facility] ed) Azithromyci Zithro suspend 2 tabl ets at eCW2 n 500 MG max 2014 ed once (Planned Oral Tablet 500mg 12:00: Paren thood [Zithromax] 00 AM - [place] Zithromax EST [place] 500mg [facility] ed) HydrOXYzine UNK active eCW2 Pamoate ([facility] [place] [facility]) Cyred Cyred suspend 1 tablet eCW2 0.15-30 0.15-3 ed (Planned MG-MCG 0 Parenthood MG-MCG - [place] [facility] ed) Latuda UNK active eCW2 ([facility] [place] [facility]) Azithromyci Azithr suspend 1 Tablet eCW2 n 500 MG omycin ed (Planned Oral Tablet 500 MG Parent daniel - [place] [facility]) Gabapentin UNK active eCW2 (Once-Daily (Planned ) [facility] [place] [facility]) Gabapentin UNK active eCW2 (Once-Daily (Planned ) [facility] [place] [facility]) Gabapentin UNK active eCW2 ([facility] [place] [facility]) Latuda UNK active eCW2 ([facility] [place] [facility]) Azithromyci Azithr suspend 1 Tablet eCW2 n 500 MG omycin ed (Planned Oral Tablet 500 MG Parent daniel - [place] [facility]) Lutera Lutera suspend 1 tablet eCW2 0.1-20 0.1-20 ed (Planned MG-MCG MG-MCG [facility] [place] [facility]) Unknown complet eCW2 Medications ed ([facility] [place] [facility]) Gabapentin UNK active eCW2 ([facility] [place] [facility]) Cyred Cyred suspend 1 tablet eCW2 0.15-30 0.15-3 ed (Planned MG-MCG 0 Parenthood MG-MCG - [place] [facility]) Lutera Lutera suspend 1 tablet eCW2 0.1-20 0.1-20 ed (Planned MG-MCG MG-MCG [facility] [place] [facility]) Gabapentin UNK active eCW2 ([facility] [place] [facility]) Lutera Lutera suspend 1 tablet eCW2 0.1-20 0.1-20 ed (Planned MG-MCG MG-MCG [facility] [place] [facility]) Azithromyci Azithr suspend 1 Tablet eCW2 n 500 MG omycin ed (Planned Oral Tablet 500 MG Parent daniel - [place] [facility]) HydrOXYzine UNK active eCW2 Pamoate ([facility] [place] [facility]) Unknown complet eCW2 Medications ed ([facility] [place] [facility]) Gabapentin UNK active eCW2 (Once-Daily (Planned ) [facility] [place] [facility]) Unknown complet eCW2 Medications ed ([facility] [place] [facility]) Latuda UNK active eCW2 ([facility] [place] [facility]) Cyred Cyred suspend 1 tablet eCW2 0.15-30 0.15-3 ed (Planned MG-MCG 0 Parenthood MG-MCG - [place] [facility]) Insurance Providers Payer name Policy type / Policy ID Covered Covered libertarian's Policy Plan Coverage type libertarian ID relationship to Walker Information walker [employer] HMO [id number] SP [id number] [employer] PPO [id number] Problems, Conditions, and Diagnoses Code Display Name Description Problem Effective Data Source (s) Type Dates Z71.7 Human Human Problem 08/26/2015 eCW2 (Planned immunodeficiency immunodeficiency 12:00:00 AM [facility] - virus (HIV) virus [HIV] EST [facility]) Surgeries/Procedures Procedure Description Date Indications Data Source(s) HEMOGLOBIN 02/16/2020 eCW2 (Planned 12:00:00 AM Parenthood - EDT [place] [facility]) US transvaginal, 02/16/2020 eCW2 (Plann ed uterus 12:00:00 AM Parenthood - EDT [place] [facility]) Surgical 02/16/2020 eCW2 (Plan yesenia 4-11.6 weeks 12:00:00 AM Parenthood - EDT [place] [facility]) Prescription drug, 02/16/2020 eCW2 (Henrry nned oral, non 12:00:00 AM Parenthood - chemotherapeutic, nos EDT [place] [facility]) GONORRHEA, ELVER 02/16/2020 eCW2 (Planned 12:00:00 AM Parenthood - EDT [place] [facility]) CHLAMYDIA, ELVER 02/16/2020 eCW2 (Planned 12:00:00 AM Parenthood - EDT [place] [facility]) Intrauterine copper 02/16/2020 eCW2 (Pl anned contraceptive 12:00:00 AM Parenthood - EDT [place] [facility]) Insertion IUD 02/16/2020 eCW2 (Planned 12:00:00 AM Parenthood - EDT [place] [facility]) Telehealth Visit Code 02/07/2020 eCW2 ( Planned 12:00:00 AM Parenthood - EDT [place] [facility]) Surgical 10/13/2019 eCW2 (Plan yesenia 4-11.6 weeks 12:00:00 AM Parenthood - EST [place] [facility]) US Abdominal, 10/13/2019 eCW2 (Planned uterus 12:00:00 AM Parenthood - EST [place] [facility]) Surgical 10/13/2019 eCW2 (Plan yesenia 4-11.6 weeks 12:00:00 AM Parenthood - EST [place] [facility]) Prescription drug, 10/13/2019 eCW2 (Henrry nned oral, non 12:00:00 AM Parenthood - chemotherapeutic, nos EST [place] [facility]) HEMOGLOBIN 10/13/2019 eCW2 (Planned 12:00:00 AM Parenthood - EST [place] [facility]) MOD SEDATJ PHYS 10/13/2019 eCW2 (Planne d OTH/THN PERF DX/THER 12:00:00 AM Parenth ood - SVC 5/> YRS EST [place] [facility]) No Known procedures No Known procedures e CW2 ([facility] [place] [facility]) No Known procedures No Known procedures e CW2 ([facility] [place] [facility]) No Known procedures No Known procedures e CW2 ([facility] [place] [facility]) Results ID Date Data Source [id number] 04/16/2020 12:30:00 PM EDT [facility] Name Value Range Interpretation Description Data Sup porting Code Source(s) Document(s ) SARS [facility] coronavirus 2 RNA This lab was ordered by Shauna Ayon and reported by [facility]. ID Date Data Source [id number] 03/13/2020 01:00:00 PM EDT [facility] Name Value Range Interpretation Description Data Sup porting Code Source(s) Document(s ) SARS [facility] coronavirus 2 RNA This lab was ordered by JEREMIAH MACK and reported by [facility]. Procedure Social History Code Duration Value Status Description Data Source(s ) Smoking Unknown if ever completed Unknown if ever eCW2 (Planned smoked smoked [facility] - [place] [facility] [facility]) Smoking Unknown if ever completed Unknown if ever eCW2 (Planned smoked smoked [facility] - [place] [facility] Smoking Unknown if ever completed Unknown if ever eCW2 (Planned smoked smoked [facility] - [place] [facility]) Smoking Unknown if ever completed Unknown if ever eCW2 (Planned smoked smoked [facility] - [place] [facility] [facility]) Smoking Unknown if ever completed Unknown if ever eCW2 (Planned smoked smoked [facility] - [place] [facility]) Smoking Unknown if ever completed Unknown if ever eCW2 (Planned smoked smoked [facility] - [place] [facility]) Vital Signs ID Date Data Source UNK Name Value Range Interpretation Code Description Data Source(s) Diastolic blood 59 mm[Hg] 59 mm[Hg] eCW2 (Henrry nned pressure [facility] [place] [facility]) Systolic blood 97 mm[Hg] 97 mm[Hg] eCW2 (Plan yesenia pressure [facility] - [place] [facility]) Body mass index 36.65 kg/m2 36.65 kg/m2 eCW2 (P lanned (BMI) [Ratio] [facility] - [place] [facility]) Body weight 234 [lb_av] 234 [lb_av] eCW2 (Plann ed Measured [facility] [place] [facility]) Body height 67 [in_us] 67 [in_us] eCW2 ([facility] [place] [facility]) Body mass index 35.24 kg/m2 35.24 kg/m2 eCW2 (P lanned (BMI) [Ratio] [facility] [place] [facility]) Body weight 225 [lb_av] 225 [lb_av] eCW2 (Plann ed Measured [facility] [place] [facility]) Body height 67 [in_us] 67 [in_us] eCW2 ([facility] [place] [facility]) Diastolic blood 56 mm[Hg] 56 mm[Hg] eCW2 (Henrry nned pressure [facility] [place] [facility]) Systolic blood 82 mm[Hg] 82 mm[Hg] eCW2 (Plan yesenia pressure [facility] - [facility] [place] [facility]) Body mass index 38.06 kg/m2 38.06 kg/m2 eCW2 (P lanned (BMI) [Ratio] [facility] - [place] [facility]) Body weight 243 [lb_av] 243 [lb_av] eCW2 (Plann ed Measured [facility] - [place] [facility]) Body height 67 [in_us] 67 [in_us] eCW2 ([facility] [place] [facility]) Patient Treatment Plan of Care Planned Activity Planned Date Details Description Data Source (s) Paragard Intrauterine 02/16/2020 12:00:00 eCW2 (Planned Copper - AM EDT [facility] - [place] [facility]) 2 ML Ondansetron 2 MG/ML 10/13/2019 12:00:00 eCW2 (Planned Prefilled Syringe AM EST [facility] - [place] [facility]) 2 ML Ketorolac 10/13/2019 12:00:00 eCW2 ( Planned Tromethamine 30 MG/ML AM EST Parent daniel - [place] [facility])
--- NOTE | 2020-05-22 23:10 | HP ---
CIWA Score Nausea/Vomitin (vomiting x 1) Muscle Tremors: 3 Anxiety: 4-Mod. Anxious/Guarded Agitation: 4-Moderately Restless Paroxysmal Sweats: 2 Orientation: 0-Oriented Tacttile Disturbances: 0-None Auditory Disturbances: 0-None Visual Disturbances: 0-None Headache: 0-None Present CIWA-Ar Total Score: 15 - Admission Criteria OASAS Guidelines: Admission for Medically Managed Detox: Requires at least one of the followin. CIWA greater than 12 2. Seizures within the past 24 hours 3. Delirium tremens within the past 24 hours 4. Hallucinations within the past 24 hours 5. Acute intervention needed for co occurring medical disorder 6. Acute intervention needed for co occurring psychiatric disorder 7. Severe withdrawal that cannot be handled at a lower level of care (continued vomiting, continued diarrhea, abnormal vital signs) requiring intravenous medication and/or fluids 8. 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 Her last admission was for the period 04/16/2020 -04/20/2020. She reports that she drinks 2 pints of Vodka and 8 bottles of 12oz. beer. She has medical history of GERD and psych. history of depression and bipolar 1 disorder. She reports suicide attempt in 2016 and denies suicidal ideation at this time. She is unemployed, lives with her parents and denies any legal issues. 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 Exam Limitations: No Limitations - Ebola screening Have you traveled outside of the country in the last 21 days: No Have you had contact with anyone from an Ebola affected area: No Have you been sick,other than usual withdrawal symptoms: No Do you have a fever: No - Review of Systems Constitutional: Chills, Malaise, Changes in sleep EENT: reports: No Symptoms Reported Respiratory: reports: No Symptoms reported Cardiac: reports: No Symptoms Reported GI: reports: Nausea, Poor Appetite, Poor Fluid Intake, Abdominal cramping : reports: No Symptoms Reported Musculoskeletal: reports: No Symptoms Reported Integumentary: reports: Flushing Neuro: reports: Headache, Tremors Endocrine: reports: No Symptoms Reported Hematology: reports: No Symptoms Reported Psychiatric: reports: Mood/Affect Appropiate, Anxious Other Systems: Reviewed and Negative Patient History - Patient Medical History Hx Anemia: No Hx Asthma: No Hx Chronic Obstructive Pulmonary Disease (COPD): No Hx Cancer: No Hx Cardiac Disorders: No Hx Congestive Heart Failure: No Hx Hypertension: No Hx Hypercholesterolemia: No Hx Pacemaker: No HX Cerebrovascular Accident: No Hx Seizures: No Hx Dementia: No Hx Diabetes: No Hx Gastrointestinal Disorders: Yes (GERD) Hx Liver Disease: No Hx Genitourinary Disorders: No Hx Sexually Transmitted Disorders: No Hx Renal Disease (ESRD): No Hx Thyroid Disease: No Hx Human Immunodeficiency Virus (HIV): No (Negative 2019) Hx Hepatitis C: No Hx Depression: Yes Hx Suicide Attempt: Yes (Attempt in 2016 by drinking pills, denies suicidal ideation at this time) Hx Bipolar Disorder: Yes Hx Schizophrenia: No - Patient Surgical History Past Surgical History: Yes Hx Neurologic Surgery: No Hx Cataract Extraction: No Hx Cardiac Surgery: No Hx Lung Surgery: No Hx Breast Surgery: No Hx Breast Biopsy: No Hx Abdominal Surgery: Yes (gastric sleeve 10yrs ago) Hx Appendectomy: No Hx Cholecystectomy: Yes Hx Genitourinary Surgery: No (2014) Hx Section: No Hx Orthopedic Surgery: No Anesthesia Reaction: No - PPD History Previous Implant?: Yes Documented Results: Negative w/proof Implanted On Prior [facility] Admission?: Yes Date: 04/18/20 Results: negative PPD to be Administered?: No - Reproductive History Patient is a Female of Child Bearing Age (11 -55 yrs old): Yes Last Menstrual Period: 04/09/20 LMP comment: IUD in place - Smoking Cessation Smoking history: Never smoked Have you smoked in the past 12 months: No Hx Chewing Tobacco Use: No Initiated information on smoking cessation: No - Substance & Tx. History Hx Alcohol Use: Yes Hx Substance Use: No Substance Use Type: Alcohol Hx Substance Use Treatment: Yes ([facility]) - Substances abused Alcohol Substance route: Oral Frequency: 1-3 times last 30 days Amount used: 2 pints of Vodka and 8 bottles of 12oz. beer Age of first use: 12 Date of last use: 05/22/20 Admission Physical Exam [facility] - Physical General Appearance: Yes: Moderate Distress, Tremorous, Sweating, Anxious HEENTM: Yes: Within Normal Limits Respiratory: Yes: Lungs Clear, Normal Breath Sounds, No Respiratory Distress Neck: Yes: Within Normal Limits Breast: Yes: Breast Exam Deferred Cardiology: Yes: Tachycardia Abdominal: Yes: Within Normal Limits Genitourinary: Yes: Within Normal Limits Back: Yes: Normal Inspection Musculoskeletal: Yes: Within Normal Limits Extremities: Yes: Tremors 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: Within Normal Limits Integumentary: Yes: Warm Lymphatic: Yes: Within Normal Limits - Diagnostic (1) Bipolar 1 disorder Current Visit: Yes Status: Chronic (2) Depression Current Visit: Yes Status: Chronic (3) Bipolar disorder Current Visit: Yes Status: Chronic (4) H/O gastric bypass Current Visit: No Status: Chronic (5) Obesity Current Visit: Yes Status: Chronic (6) Alcohol dependence with withdrawal, uncomplicated Current Visit: Yes Status: Acute (7) GERD (gastroesophageal reflux disease) Current Visit: Yes Status: Chronic Qualifiers: Esophagitis presence: esophagitis presence not specified Qualified Code(s): K21.9 - Gastro-esophageal reflux disease without esophagitis Cleared for Admission [facility] - Detox or Rehab [facility] Level of Care: Medically Managed Detox Regimen/Protocol: Librium Claeared for Rehab Admission: No Breathalyzer - Breathalyzer Breathalyzer: 0 Urine Drug Screen - Test Device Lot number: [id number] Expiration date: 04/01/22 (denies marijuana use) - Control Is test valid?: Yes - Results Drug screen NEGATIVE: No Urine drug screen results: THC-Marijuana Inpatient Rehab Admission - Rehab Decision to Admit Inpatient rehab admission?: No
--- OUTSIDE RECORDS SUMMARY | 2020-05-22 23:29 | XMS ---
:1985 Author Organization [facility] Care Team Providers Name Role Phone [id number], [phone] Unavailable Unavailable Re-disclosure Warning The records that [...] is protected by Article 27-F of the [place] Public Health law. If you continue you may haveaccess to information: Regarding HIV / AIDS; Provided by facilities licensed or operated by the [facility] of Mental Health; or Provided by the [facility] Office for People With Developmental Disabilities. If such information is present, then the following [facility] mandated warning applies: This information has been [...] law may result in a fine or mcc sentence or both. A general authorization for the release of medical or other information is NOT sufficient authorization for further disclosure. Allergies and Adverse Reactions Type Description Substance Reaction Status Data Source(s ) No Information No Information No Information eC W2 ([facility] [place] [facility]) No Known Allergies No Known Allergies No Known eCW2 ([facility] [place] [facility]) No Known Allergies No Known Allergies No Known eCW2 ([facility] All[facility]ies [facility] [place] [facility]) No Known Allergies No Known Allergies No Known eCW2 ([facility] All[facility]ies [facility] [place] [facility]) No Information No Information No Information eC W2 ([facility] [place] [facility]) No Information No Information No Information eC W2 ([facility] [place] [facility]) Encounters Encounter Providers Location Date Indications Data Source(s ) [facility] [place] [facility]T [facility] [place] [facility] 02[facility]16/2020 eCW2 ([facility] 12:[facility] [place] AM [facility] [place] [facility] 02/07/2020 [facility]00 [facility] [place] AM EDT [facility] [place] [facility] 10/15/2019 eCW2 ([facility] 12:[facility] [place] AM EST [facility] [place] [facility] 10/13/2019 eCW2 ([facility] 12:[facility] [place] AM EST [facility] [place] [facility] 10/05/2019 eCW2 ([facility] 12:[facility]:00 [facility] [place] AM [facility] [place] [facility]) Attender: 08/30/2019 [facility] [id number] 01:05:00 [facility] [phone] PM EST [id number] Planned Planned 07/03/2018 eCW2 ([facility] 12:[facility] [place] AM EST [facility] [place] [facility]) [facility] 07/01/2018 eCW2 ([facility] 12:[facility]:00 [facility] [place] AM EDT [facility] [place] [facility] 09/23/2017 eCW[facility] [place] AM EST [facility] [place] [facility] 09/22/2017 eCW2 [facility] [place] AM EST [facility] [place] [facility] 09/08/2017 eCW2 ([facility] 12:00:00 [facility] [place] AM EST [facility] [place] [facility]) [facility] 05/18/2016 eCW2 ([facility] 12:00:00 [facility] [place] AM EDT [facility] [place] [facility] 08/26/2015 eCW2 ([facility] 12:00:00 [facility] [place] AM EST [facility]) [facility] 08/05/2015 eCW2 ([facility] 12:00:00 [facility] [place] AM EST [facility] 08/04/2015 eCW2 ([facility] 12:00:00 [facility] [place] AM EST [facility]) [facility] 08/02/2015 eCW2 ([facility] 12:[facility] [place] AM EST [facility]) Immunizations Vaccine Date Status Description Data Source(s) Yessy (SAB ONLY; 02/16/2020 completed eCW2 (Pl anned [id number]) 09:35:00 AM ED[facility] [place] [facility]) No Known Immunizations completed eCW2 ([facility] [place] [facility]) No Known Immunizations completed eCW2 ([facility] [place] [facility]) No Known Immunizations completed eCW2 ([facility] [place] [facility]) No Known Immunizations completed eCW2 ([facility] [place] [facility]) No Known Immunizations completed eCW2 ([facility] [place] [facility]) Medications Medication Brand Start Product Dose Route Administrative Pharm[facility] Indications Reaction Description Data Name Date Form Instructions Instructions Source(s) Paragard Paraga 02/15/ active as directe d eCW2 Intrauterin rd 2019 (Planned e Copper - Intrau 12:00: Paren thood terine 00 AM - [place] EDT [place] [facility]) Ondansetron Ondans 10/13/ suspend as dir ected eCW2 HCl 4 etron 2019 ed (Planned MG/2ML HCl 4 12:00: Parenthood MG/2ML 00 AM - [place] [facility] [place] [facility] ed) Ondansetron Ondans 10/13/ suspend as dir ected eCW2 HCl 4 etron 2019 ed (Planned MG/2ML HCl 4 12:00: [facility] MG/2ML 00 AM - [place] [facility] [place] [facility] ed) 2 ML Ondans 10/13/ active as directed eC W2 Ondansetron etron 2019 (Planne d 2 MG/ML HCl 4 12:00: Parenthoo d Prefilled MG/2ML 00 AM - [place] Syringe EST [place] Ondansetron Incorpor at HCl 4 ed) MG/2ML 2 ML Ketoro 10/13/ active 0.5 ml one eCW 2 Ketorolac lac 2019 time (Planned Tromethamin Tromet 12:00: [facility] n[facility] e 30 MG/ML hamine 00 AM - [place] Cartridge 60 EST [place] Ketorolac MG/2ML Incorpor at Tromethamin ed) e 60 MG/2ML Cyred Cyred 07/01/ suspend 1 tablet eCW2 0.15-30 0.15-3 2017 ed (Planned MG-MCG 0 12:00: Parenthood MG-MCG 00 AM - [place] EDT [place] [facility] ed) Lutera Lutera 07/01/ suspend 1 tablet eC W2 0.1-20 0.1-20 2017 ed (Planned MG-MCG MG-MCG 12:00: Parenthoo d 00 AM - [place] EDT [place] [facility] ed) Cyred Cyred 07/01/ suspend 1 tablet eCW2 0.15-30 0.15-3 2018 ed (Planned MG-MCG 0 12:00: [facility] MG-MCG 00 AM - [place] EDT [place] [facility]) Ondansetron Ondans 07/01/ suspend as dir ected eCW2 HCl 4 etron 2018 ed (Planned MG/2ML HCl 4 12:00: [facility] MG/2ML 00 AM - [place] EDT [place] [facility] ed) Lutera Lutera 07/01/ suspend 1 tablet eC W2 0.1-20 0.1-20 2018 ed (Planned MG-MCG MG-MCG 12:00: Parenthoo d 00 AM - [place] EDT [place] [facility] ed) Ondansetron Ondans 07/01/ suspend as dir ected eCW2 HCl 4 etron 2018 ed (Planned MG/2ML HCl 4 12:00: [facility] MG/2ML 00 AM - [place] EDT [place] [facility] ed) Cyred Cyred 07/01/ suspend 1 tablet eCW2 0.15-30 0.15-3 2018 ed (Planned MG-MCG 0 12:00: [facility] MG-MCG 00 AM - [place] EDT [place] [facility]) 2 ML Ondans suspend as directed e CW2 Ondansetron etron 2017 ed (Planne d 2 MG/ML HCl 4 12:00: Parenthoo d Prefilled MG/2ML 00 AM - [place] Syringe EDT [place] Ondansetron Incorpor at HCl 4 ed) MG/2ML Lutera Lutera 07/01/ suspend 1 tablet eC W2 0.1-20 0.1-20 2018 ed (Planned MG-MCG MG-MCG 12:00: Parenthoo d 00 AM - [place] EDT [place] [facility]) Metronidazo Metron suspend 1 tabl et eCW2 le 500 MG idazol 2018 ed (Planned Oral Tablet e 500 12:00: Paren thood MG 00 AM - [place] EST [place] [facility] ed) Metronidazo Metron suspend 1 tabl et eCW2 le 500 MG idazol 2018 ed (Planned Oral Tablet e 500 12:00: Paren [facility]ood MG 00 AM - [place] EST [place] [facility]) Metronidazo Metron 09/08/ suspend 1 tabl et eCW2 le 500 MG idazol 2017 ed (Planned Oral Tablet e 500 12:00: Paren thood MG 00 AM - [place] EST [place] [facility]) Azithromyci Zithro suspend 2 tabl ets at eCW2 n 500 MG max 2014 ed once (Planned Oral Tablet 500mg 12:00: Paren thood [Zithromax] 00 AM - [place] Zithromax EST [place] 500mg [facility]orpor[facility] ed) Azithromyci Zithro suspend 2 tabl ets at eCW2 n 500 MG max 2014 ed once (Planned Oral Tablet 500mg 12:00: Paren thood [Zithromax] 00 AM - [place] Zithromax EST [place] 500mg [facility]orpor[facility] ed) Azithromyci Zithro suspend 2 tabl ets at eCW2 n 500 MG max 2014 ed once (Planned Oral Tablet 500mg 12:00: Paren thood [Zithromax] 00 AM - [place] Zithromax EST [place] 500mg [facility]orpor[facility] ed) HydrOXYzine UNK active eCW2 Pamoate ([facility] [place] [facility]) Cyred Cyred suspend 1 tablet eCW2 0.15-30 0.15-3 ed (Planned MG-MCG 0 Parenthood MG-MCG - [place] [facility]) Latuda UNK active eCW2 ([facility] [place] [facility]) Azithromyci Azithr suspend 1 Tablet eCW2 n 500 MG omycin ed (Planned Oral Tablet 500 MG Parent daniel - [place] [facility]) Gabapentin UNK active eCW2 (Once-Daily (Planned ) [facility] [place] [facility]) Gabapentin UNK active eCW2 (Once-Daily (Planned ) [facility] [place] [facility]) Gabapentin UNK active eCW2 ([facility] [place] [facility]) Latuda UNK active eCW2 ([facility] [place] [facility]) Azithromyci Azithr suspend 1 Tablet eCW2 n 500 MG omycin ed (Planned Oral Tablet 500 MG Parent daniel - [place] [facility]) Lutera Lutera suspend 1 tablet eCW2 0.1-20 0.1-20 ed (Planned MG-MCG MG-MCG [facility] [place] [facility]) Unknown complet eCW2 Medications ed ([facility] [place] [facility]) Gabapentin UNK active eCW2 ([facility] [place] [facility]) Cyred Cyred suspend 1 tablet eCW2 0.15-30 0.15-3 ed (Planned MG-MCG 0 Parenthood MG-MCG - [place] [facility]) Lutera Lutera suspend 1 tablet eCW2 0.1-20 0.1-20 ed (Planned MG-MCG MG-MCG [facility] [place] [facility]) Gabapentin UNK active eCW2 ([facility] [place] [facility]) Lutera Lutera suspend 1 tablet eCW2 0.1-20 0.1-20 ed (Planned MG-MCG MG-MCG [facility] [place] [facility]) Azithromyci Azithr suspend 1 Tablet eCW2 n 500 MG omycin ed (Planned Oral Tablet 500 MG Parent daniel - [place] [facility]) HydrOXYzine UNK active eCW2 Pamoate ([facility] [place] [facility]) Unknown complet eCW2 Medications ed ([facility] [place] [facility]) Gabapentin UNK active eCW2 (Once-Daily (Planned ) [facility] [place] [facility]) Unknown complet eCW2 Medications ed ([facility] [place] [facility]) Latuda UNK active eCW2 ([facility] [place] [facility]) Cyred Cyred suspend 1 tablet eCW2 0.15-30 0.15-3 ed (Planned MG-MCG 0 Parenthood MG-MCG - [place] [facility]) Insurance Providers Payer name Policy type / Policy ID Covered Covered green party's Policy Plan Coverage type green party ID relationship to Walker Information walker [employer] HMO [id number] SP [id number] [employer] PPO [id number] Problems, Conditions, and Diagnoses Code Display Name Description Problem Effective Data Source (s) Type Dates Z71.7 Human Human Problem 08/26/2015 eCW2 (Planned immunodeficiency immunodeficiency 12:00:00 AM [facility] - virus (HIV) virus [HIV] EST [facility] [facility]) Surgeries/Procedures Procedure Description Date Indications Data Source(s) HEMOGLOBIN 02/16/2020 eCW2 (Planned 12:00:00 AM [facility] - EDT [place] [facility]) US transvaginal, 02/16/2020 eCW2 (Plann ed uterus 12:00:00 AM [facility] - EDT [place] [facility]) Surgical 02/16/2020 eCW2 (Plan yesenia 4-11.6 weeks 12:00:00 AM [facility] - EDT [facility] [place] [facility]) Prescription drug, 02/16/2020 eCW2 (Henrry nned oral, non 12:00:00 AM Parenthood - chemotherapeutic, nos EDT [facility] [place] [facility]) GONORRHEA, ELVER 02/16/2020 eCW2 ([facility]anned 12:00:00 AM [facility] - EDT [facility] [place] [facility]) CHLAMYDIA, ELVER 02/16/2020 eCW2 (Planned 12:00:00 AM [facility] - EDT [facility] [place] [facility]) Intrauterine copper 02/16/2020 eCW2 (Pl anned contraceptive 12:00:00 AM [facility] - EDT [facility] [place] [facility]) Insertion IUD 02/16/2020 eCW2 (Planned 12:00:00 AM [facility] - EDT [facility] [place] [facility]) Telehealth Visit Code 02/07/2020 eCW2 ( Planned 12:00:00 AM [facility] - EDT [facility] [place] [facility]) Surgical 10/13/2019 eCW2 (Plan yesenia 4-11.6 weeks 12:00:00 AM Parenthood - EST [facility] [place] [facility]) US Abdominal, 10/13/2019 eCW2 (Planned uterus 12:00:00 AM [facility] - EST [facility] [place] [facility]) Surgical 10/13/2019 eCW2 (Plan yesenia 4-11.6 weeks 12:00:00 AM [facility] - EST [facility] [place] [facility]) Prescription drug, 10/13/2019 eCW2 (Henrry nned oral, non 12:00:00 AM [facility] - chemotherapeutic, nos EST [facility] [place] [facility]) HEMOGLOBIN 10/13/2019 eCW2 (Planned 12:00:00 AM [facility] - EST [facility] [place] [facility]) MOD SEDATJ PHYS 10/13/2019 eCW2 (Planne d OTH/THN PERF DX/THER 12:00:00 AM Parenth ood - SVC 5/> YRS EST [facility] [place] [facility]) No Known procedures No Known procedures e CW2 ([facility] [place] [facility]) No Known procedures No Known procedures e CW2 ([facility] [place] [facility]) No Known procedures No Known procedures e CW2 ([facility] [place] [facility]) Results ID Date Data Source [id number] 04/16/2020 12:30:00 PM EDT [facility] Name Value Range Interpretation Description Data Sup porting Code Source(s) Document(s ) SARS [facility] coronavirus 2 RNA This lab was ordered by Shauna Ayon and reported by [facility]. ID Date Data Source [id number] 03/13/2020 01:00:00 PM EDT [facility] Name Value Range Interpretation Description Data Sup porting Code Source(s) Document(s ) SARS [facility] coronavirus 2 RNA This lab was ordered by JEREMIAH MACK and reported by [facility]. Procedure Social History Code Duration Value Status Description Data Source(s ) Smoking Unknown if ever completed Unknown if ever eCW2 (Planned smoked smoked [facility] [place] [facility]) Smoking Unknown if ever completed Unknown if ever eCW2 (Planned smoked smoked [facility] [place] [facility]) Smoking Unknown if ever completed Unknown if ever eCW2 (Planned smoked smoked [facility] [place] [facility] Smoking Unknown if ever completed Unknown if ever eCW2 (Planned smoked smoked [facility] [place] [facility]) Smoking Unknown if ever completed Unknown if ever eCW2 (Planned smoked smoked [facility] [place] [facility]) Smoking Unknown if ever completed Unknown if ever eCW2 (Planned smoked smoked [facility] [place] [facility]) Vital Signs ID Date Data Source UNK Name Value Range Interpretation Code Description Data Source(s) Diastolic blood 59 mm[Hg] 59 mm[Hg] eCW2 (Henrry nned pressure [facility] [place] [facility]) Systolic blood 97 mm[Hg] 97 mm[Hg] eCW2 (Plan yesenia pressure [facility] [place] [facility]) Body mass index 36.65 kg/m2 36.65 kg/m2 eCW2 (P lanned (BMI) [Ratio] [facility] [place] [facility]) Body weight 234 [lb_av] 234 [lb_av] eCW2 (Plann ed Measured [facility] [place] [facility]) Body height 67 [in_us] 67 [in_us] eCW2 ([facility] [place] [facility]) Body mass index 35.24 kg/m2 35.24 kg/m2 eCW2 (P lanned (BMI) [Ratio] [facility] [place] [facility]) Body weight 225 [lb_av] 225 [lb_av] eCW2 (Plann ed Measured [facility] [place] [facility]) Body height 67 [in_us] 67 [in_us] eCW2 ([facility] [place] [facility]) Diastolic blood 56 mm[Hg] 56 mm[Hg] eCW2 (Henrry nned pressure [facility] [place] [facility]) Systolic blood 82 mm[Hg] 82 mm[Hg] eCW2 (Plan yesenia pressure [facility] [place] [facility]) Body mass index 38.06 kg/m2 38.06 kg/m2 eCW2 (P lanned (BMI) [Ratio] [facility] [place] [facility]) Body weight 243 [lb_av] 243 [lb_av] eCW2 (Plann ed Measured [facility] [place] [facility]) Body height 67 [in_us] 67 [in_us] eCW2 ([facility] [place] [facility]) Patient Treatment Plan of Care Planned Activity Planned Date Details Description Data Source (s) Paragard Intrauterine 02/16/2020 12:00:00 eCW2 (Planned Copper - AM EDT [facility] [place] [facility]) 2 ML Ondansetron 2 MG/ML 10/13/2019 12:00:00 eCW2 (Planned Prefilled Syringe AM EST [facility] [place] [facility]) 2 ML Ketorolac 10/13/2019 12:00:00 eCW2 ( Planned Tromethamine 30 MG/ML AM EST Parent daniel - [place] [facility])
[2020-05-22 23:34] VITALS: BMI 28.2
[2020-05-22] MEDS ORDERED: MENTHOL/PHENOL 1 EACH UD MM PRN (23:44)
[2020-05-22] MEDS ORDERED: IBUPROFEN 400 MG TABLET (FP) PO PRN (23:44)
[2020-05-22] MEDS ORDERED: BISMUTH SUBSALICYLATE 524 MG/30 ML UD PO PRN (23:44)
[2020-05-22] MEDS ORDERED: ONDANSETRON *ODT* 4 MG TABLET SL PRN (23:44)
[2020-05-22] MEDS ORDERED: chlordiazePOXIDE HCL 25 MG CAPSULE PO PRN (23:44)
[2020-05-22] MEDS ORDERED: MAGNESIUM HYDROX 2400MG/30ML ORAL SUSPENSION 30 ML CUP PO PRN (23:44)
[2020-05-22] MEDS ORDERED: METHOCARBAMOL 500 MG TABLET PO PRN (23:44)
[2020-05-22] MEDS ORDERED: MAGNESIUM CITRATE 300 ML BOTTLE PO PRN (23:44)
[2020-05-22] MEDS ORDERED: MAG HYDROX/AL HYDROX/SIMETH 30 ML UNIT-DOSE CUP PO PRN (23:44)
[2020-05-22] MEDS ORDERED: ACETAMINOPHEN 325 MG TABLET (FP) PO PRN (23:44)
[2020-05-23] MEDS ORDERED: chlordiazePOXIDE HCL 25 MG CAPSULE PO PRN (00:28)
[2020-05-23] MEDS: hydrOXYzine PAMOATE 25 MG CAPSULE (FP) PO PRN ×3 (01:17→22:04)
[2020-05-23] MEDS: ACETAMINOPHEN 325 MG TABLET (FP) PO PRN (01:20)
[2020-05-23] MEDS ORDERED: chlordiazePOXIDE HCL 25 MG CAPSULE PO SCH (05:00)
[2020-05-23] MEDS: chlordiazePOXIDE HCL 25 MG CAPSULE PO SCH ×4 (06:08→22:04)
[2020-05-23 10:12] LABS: ALBUMIN 3.3 g/dl (3.4-5.0); BILIRUBIN,TOTAL 0.2 mg/dL (0.2-1); BLOOD UREA NITROGEN 7.6 mg/dL (7-18); CALCIUM 8.6 mg/dL (8.5-10.1); CREATININE 0.6 mg/dL (0.55-1.3); POTASSIUM 3.8 mmol/L (3.5-5.1); TOT PROT 7.1 g/dl (6.4-8.2)
[2020-05-23] MEDS: PRENATAL VITAMINS W/ FOLIC ACID TABLET (FP) PO SCH (10:19)
[2020-05-23 10:20] LABS: HEMATOCRIT 35.8 % (32.4-45.2); HEMOGLOBIN 11.7 GM/dL (10.7-15.3); MCHC 32.6 g/dl (32.0-36.0); MEAN CELL VOLUME 85.7 fl (80-96); MEAN PLT VOLUME 7.7 fl (7.5-11.1); PLATELET COUNT 384 K/MM3 (134-434); RBC 4.18 M/mm3 (3.60-5.2); RDW 14.8 % (11.6-15.6); WHITE BLOOD COUNT 6.7 K/mm3 (4.0-10.0)
--- NOTE | 2020-05-23 11:43 | CONSULT ---
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 Refer to addiction counselor's summary for further information Medical History: Significant for GERD, history of cholecystectomy and gastric sleeve for obesity 10 years ago Psychiatric History: Patient is known for one previous admission to this facility. She reports that her first psychiatric contact occured in 2017 when she was admited to [facility] for suicidal attempt by taking sleeping pills with alcohol. She said that she was diagnosed with Bipolar Disorder and started on psychotropic medications. Reports that she still sees Dr Downs, a private psychiatrist as well as a therapist in the [place] and she is prescribed Latuda 60 mg/hs and hydroxyzine 25 or 50 mg HS. At present, denies experiencing psychotic, manic symptoms, S/H ideations. However, reports feeling depressed and sleeping poorly Physical/Sexual Abuse/Trauma History: Denies history of abuse as a child or DV relationship as an adult Mental Status Exam - Mental Status Exam Alert and Oriented to: Time, Place, Person Cognitive Function: Fair Patient Appearance: Well Groomed Mood: Depressed Affect: Appropriate Patient Behavior: Cooperative Speech Pattern: Clear Voice Loudness: Normal Thought Process: Intact, Goal Oriented Thought Disorder: Not Present Hallucinations: Denies Suicidal Ideation: Denies Homicidal Ideation: Denies Insight/Judgement: Poor Sleep: Poorly Appetite: Good Muscle strength/Tone: Normal Gait/Station: Normal Psychiatric Findings - Problem List ([place] 1, 2,3) (1) Bipolar disorder Current Visit: Yes Status: Chronic (2) Alcohol-induced mood disorder Current Visit: Yes Status: Acute (3) Alcohol-induced sleep disorder Current Visit: No Status: Acute (4) Alcohol dependence with withdrawal, uncomplicated Current Visit: Yes Status: Acute (5) GERD (gastroesophageal reflux disease) Current Visit: Yes Status: Chronic Qualifiers: Esophagitis presence: esophagitis presence not specified Qualified Code(s): K21.9 - Gastro-esophageal reflux disease without esophagitis (6) Obesity Current Visit: Yes Status: Chronic (7) Stomach sleeper Current Visit: No Status: Resolved - Initial Treatment Plan Initial Treatment Plan: 1) Continue Latuda 60 mg po HS and Vistaril 50 mg po HS. 2) Continue inpatient detoxification
--- NOTE | 2020-05-23 15:17 | PN ---
[facility] CIWA - CIWA Score Nausea/Vomitin-No Nausea/No Vomiting Muscle Tremors: 3 Anxiety: 2 Agitation: 3 Paroxysmal Sweats: 3 Orientation: 0-Oriented Tacttile Disturbances: 0-None Auditory Disturbances: 0-None Visual Disturbances: 0-None Headache: 0-None Present CIWA-Ar Total Score: 11 S Progress Note (SOAP) Subjective: sweats shakes body aches interrupted sleep Objective: 05/23/20 15:16 Vital Signs Temperature 97.1 F L 05/23/20 13:06 Pulse Rate 80 05/23/20 13:06 Respiratory Rate 18 05/23/20 13:06 Blood Pressure 103/61 05/23/20 13:06 O2 Sat by Pulse Oximetry (%) 98 05/23/20 13:06 Laboratory Tests 05/22/20 05/23/20 05/23/20 23:33 08:00 08:00 WBC 6.7 RBC 4.18 Hgb 11.7 Hct 35.8 MCV 85.7 MCH 28.0 MCHC 32.6 RDW 14.8 Plt Count 384 MPV 7.7 Sodium Potassium Chloride Carbon Dioxide Anion Gap BUN Creatinine Est GFR (CKD-EPI)AfAm Est GFR (CKD-EPI)NonAf Random Glucose Calcium Total Bilirubin AST ALT Alkaline Phosphatase Total Protein Albumin POC Urine HCG, Qual Negative Syphilis Serology Non-reactive 05/23/20 08:00 WBC RBC Hgb Hct MCV MCH MCHC RDW Plt Count MPV Sodium 144 Potassium 3.8 Chloride 107 Carbon Dioxide 30 Anion Gap 7 L BUN 7.6 Creatinine 0.6 Est GFR (CKD-EPI)AfAm 138.80 Est GFR (CKD-EPI)NonAf 119.76 Random Glucose 85 Calcium 8.6 Total Bilirubin 0.2 AST 29 ALT 33 Alkaline Phosphatase 70 Total Protein 7.1 Albumin 3.3 L POC Urine HCG, Qual Syphilis Serology labs noted aaox3 ambulating no acute distress Assessment: 05/23/20 15:17 withdrawal sx Plan: continue detox increase fluids
[2020-05-23] MEDS: THIAMINE HCL 100 MG TABLET (FP) PO SCH (22:04)
[2020-05-23] MEDS: MELATONIN 5 MG TABLETS PO SCH (22:04)
[2020-05-24] MEDS ORDERED: chlordiazePOXIDE HCL 10 MG CAPSULE PO PRN
[2020-05-24] MEDS ORDERED: chlordiazePOXIDE HCL 10 MG CAPSULE PO SCH (05:00)
[2020-05-24] MEDS ORDERED: chlordiazePOXIDE HCL 25 MG CAPSULE PO SCH (05:00)
[2020-05-24] MEDS: ACETAMINOPHEN 325 MG TABLET (FP) PO PRN ×2 (07:04→17:38)
[2020-05-24] MEDS: PRENATAL VITAMINS W/ FOLIC ACID TABLET (FP) PO SCH (11:00)
[2020-05-24] MEDS ORDERED: chlordiazePOXIDE HCL 10 MG CAPSULE PO ONE ×2 (14:00→22:00)
--- NOTE | 2020-05-24 18:05 | PN ---
S CIWA - CIWA Score Nausea/Vomitin-No Nausea/No Vomiting Muscle Tremors: None Anxiety: 1-Mildly Anxious Agitation: 1-Slight > Activity Paroxysmal Sweats: 2 Orientation: 0-Oriented Tacttile Disturbances: 0-None Auditory Disturbances: 0-None Visual Disturbances: 0-None Headache: 0-None Present CIWA-Ar Total Score: 4 BHS Progress Note (SOAP) Subjective: Sweating, Restless. Patient reports that current Withdrawal / Detox symptoms are minimal in degree and that she feels well overall at this time. Objective: Patient A & O X 3, Observed Ambulating on Detox Unit Unassisted. In No Acute Distress. 05/24/20 18:02 Vital Signs Temperature 98.1 F 05/24/20 12:52 Pulse Rate 103 H 05/24/20 12:52 Respiratory Rate 16 05/24/20 12:52 Blood Pressure 119/83 05/24/20 12:52 O2 Sat by Pulse Oximetry (%) 96 05/24/20 12:52 Laboratory Tests 05/22/20 05/23/20 05/23/20 23:33 00:05 08:00 WBC RBC Hgb Hct MCV MCH MCHC RDW Plt Count MPV Sodium Potassium Chloride Carbon Dioxide Anion Gap BUN Creatinine Est GFR (CKD-EPI)AfAm Est GFR (CKD-EPI)NonAf Random Glucose Calcium Total Bilirubin AST ALT Alkaline Phosphatase Total Protein Albumin POC Urine HCG, Qual Negative Syphilis Serology Non-reactive COVID-19 ([facility]) Not detected 05/23/20 05/23/20 08:00 08:00 WBC 6.7 RBC 4.18 Hgb 11.7 Hct 35.8 MCV 85.7 MCH 28.0 MCHC 32.6 RDW 14.8 Plt Count 384 MPV 7.7 Sodium 144 Potassium 3.8 Chloride 107 Carbon Dioxide 30 Anion Gap 7 L BUN 7.6 Creatinine 0.6 Est GFR (CKD-EPI)AfAm 138.80 Est GFR (CKD-EPI)NonAf 119.76 Random Glucose 85 Calcium 8.6 Total Bilirubin 0.2 AST 29 ALT 33 Alkaline Phosphatase 70 Total Protein 7.1 Albumin 3.3 L POC Urine HCG, Qual Syphilis Serology COVID-19 ([facility]) Lab results noted. 05/24/20 18:02 Assessment: 05/24/20 18:04 WITHDRAWAL SYMPTOMS. Plan: Continue Detox. Since Patient reports that current withdrawal / detox symptoms are minimal in degree and that she feels well overall, at Patients request, current Detox Medication regimen modified so that she may be discharged tomorrow, 05/25/2020, to return home and attend to personal matters.
[2020-05-24 21:26] VITALS: TEMP 98.7
[2020-05-24] MEDS: hydrOXYzine PAMOATE 25 MG CAPSULE (FP) PO PRN (22:10)
[2020-05-24] MEDS: MELATONIN 5 MG TABLETS PO SCH (22:10)
[2020-05-24] MEDS: THIAMINE HCL 100 MG TABLET (FP) PO SCH (22:11)
[2020-05-25] MEDS ORDERED: chlordiazePOXIDE HCL 10 MG CAPSULE PO PRN
[2020-05-25] MEDS ORDERED: chlordiazePOXIDE HCL 10 MG CAPSULE PO ONE (05:00)
[2020-05-25] MEDS ORDERED: chlordiazePOXIDE HCL 10 MG CAPSULE PO SCH ×2 (05:00)
[2020-05-25 08:28] VITALS: BP 102/76; PULSE 89
--- NOTE | 2020-05-25 10:07 | DS ---
[facility] Detox Discharge Summary Admission Date: 05/22/20 Discharge Date: 05/25/20 - History Present History: Alcohol Dependence Additional Comments: Alert and oriented x3, in no acute respiratory distress. Full ROM, ambulatory in the unit without assistance. Skin warm to touch without any lesions. Detox protocol completed without any complications, stable for discharge this morning. Pertinent Past History: History of GERD, Cholecystectomy, gastric sleeve, and alcohol use disorder - Physical Exam Results Vital Signs: Vital Signs Temperature 98.7 F 05/25/20 06:22 Pulse Rate 89 05/25/20 06:22 Respiratory Rate 16 05/25/20 06:22 Blood Pressure 102/76 05/25/20 06:22 O2 Sat by Pulse Oximetry (%) 96 05/25/20 06:22 Vital Signs 05/25/20 06:22 Temperature 98.7 F Pulse Rate 89 Respiratory 16 Rate Blood Pressure 102/76 O2 Sat by Pulse 96 Oximetry (%) Laboratory Last Values WBC 6.7 K/mm3 (4.0-10.0) 05/23/20 08:00 RBC 4.18 M/mm3 (3.60-5.2) 05/23/20 08:00 Hgb 11.7 GM/dL (10.7-15.3) 05/23/20 08:00 Hct 35.8 % (32.4-45.2) 05/23/20 08:00 MCV 85.7 fl (80-96) 05/23/20 08:00 MCH 28.0 pg (25.7-33.7) 05/23/20 08:00 MCHC 32.6 g/dl (32.0-36.0) 05/23/20 08:00 RDW 14.8 % (11.6-15.6) 05/23/20 08:00 Plt Count 384 K/MM3 (134-434) 05/23/20 08:00 MPV 7.7 fl (7.5-11.1) 05/23/20 08:00 Sodium 144 mmol/L (136-145) 05/23/20 08:00 Potassium 3.8 mmol/L (3.5-5.1) 05/23/20 08:00 Chloride 107 mmol/L (98-107) 05/23/20 08:00 Carbon Dioxide 30 mmol/L (21-32) 05/23/20 08:00 Anion Gap 7 MMOL/L (8-16) L 05/23/20 08:00 BUN 7.6 mg/dL (7-18) 05/23/20 08:00 Creatinine 0.6 mg/dL (0.55-1.3) 05/23/20 08:00 Est GFR (CKD-EPI)AfAm 138.80 05/23/20 08:00 Est GFR (CKD-EPI)NonAf 119.76 05/23/20 08:00 Random Glucose 85 mg/dL (74-106) 05/23/20 08:00 Calcium 8.6 mg/dL (8.5-10.1) 05/23/20 08:00 Total Bilirubin 0.2 mg/dL (0.2-1) 05/23/20 08:00 AST 29 U/L (15-37) 05/23/20 08:00 ALT 33 U/L (13-61) 05/23/20 08:00 Alkaline Phosphatase 70 U/L (45-117) 05/23/20 08:00 Total Protein 7.1 g/dl (6.4-8.2) 05/23/20 08:00 Albumin 3.3 g/dl (3.4-5.0) L 05/23/20 08:00 POC Urine HCG, Qual Negative 05/22/20 23:33 Syphilis Serology Non-reactive (NONREACTIVE) 05/23/20 08:00 COVID-19 ([facility]) Not detected (Not Detected) 05/23/20 00:05 Labs noted. Pertinent Admission Physical Exam Findings: Withdrawal symptoms. - Treatment Hospital Course: Detox Protocol Followed, Detoxed Safely, Responded well, Discharged Condition Good - Medication Discharge Medications: Ambulatory Orders Famotidine [Pepcid -] 20 mg PO BID #0 tablet 12/23/12 Hydroxyzine HCl 25 mg PO DAILY 03/13/20 Lurasidone HCl [Latuda] 60 mg PO HS 03/13/20 - Diagnosis (1) Alcohol dependence with withdrawal, uncomplicated Status: Acute (2) GERD (gastroesophageal reflux disease) Status: Chronic Qualifiers: Esophagitis presence: esophagitis presence not specified Qualified Code(s): K21.9 - Gastro-esophageal reflux disease without esophagitis (3) H/O gastric bypass Status: Chronic (4) Obesity Status: Chronic - AMA Did Patient Leave Against Medical Advice: No CIWA Score - CIWA Score Nausea/Vomitin-No Nausea/No Vomiting Muscle Tremors: None Anxiety: 1-Mildly Anxious Agitation: 1-Slight > Activity Paroxysmal Sweats: 1-Minimal Palms Moist Orientation: 0-Oriented Tacttile Disturbances: 0-None Auditory Disturbances: 0-None Visual Disturbances: 0-None Headache: 0-None Present CIWA-Ar Total Score: 3
[2020-05-26] MEDS ORDERED: chlordiazePOXIDE HCL 10 MG CAPSULE PO ONE (05:00)
[2020-05-26] MEDS ORDERED: chlordiazePOXIDE HCL 10 MG CAPSULE PO SCH (05:00)
[2020-05-27] MEDS ORDERED: chlordiazePOXIDE HCL 10 MG CAPSULE PO ONE (05:00)
== END 2020-05-25 08:54 | disposition home or self-care (01) | DRG 775 ==
LOC: YASAS 22:21 → Y6N 23:23
PROVIDERS: ADMIT Allergy & Immunology; ATTEND Allergy & Immunology
DX: F10.230 Alcohol dependence with withdrawal, uncomplicated (principal); F10.282 Alcohol dependence with alcohol-induced sleep disorder; F10.24 Alcohol dependence with alcohol-induced mood disorder; F31.9 Bipolar disorder, unspecified; K21.9 Gastro-esophageal reflux disease without esophagitis; Z90.49 Acquired absence of other specified parts of digestive tract; Z98.84 Bariatric surgery status
CPT/HCPCS: 36415; 80053; 81025; 85027; 86780; U0003

== ENCOUNTER 2021-03-18 11:52 | Emergency (ER) | payer OTHER ==
[2021-03-18 12:04] VITALS: BP 119/83; PULSE 74; TEMP 97.8; BMI 38.7
[2021-03-18] MEDS ORDERED: KETOROLAC TROMETHAMINE 60 MG/2 ML VIAL IM ONE (12:31)
[2021-03-18] MEDS ORDERED: hydrOXYzine PAMOATE 50 MG CAPSULE (FP) PO ONE (12:31)
[2021-03-18] MEDS ORDERED: KETOROLAC TROMETHAMINE 60 MG/2 ML VIAL ONE (12:40)
[2021-03-18] MEDS ORDERED: hydrOXYzine PAMOATE 25 MG CAPSULE (FP) PO ONE (12:40)
== END 2021-03-18 13:59 | disposition home or self-care (01) ==
LOC: FER 11:52
PROC: 3E0233Z Introduction of Anti-inflammatory into Muscle, Percutaneous Approach (ICD-10-PCS; principal; 2021-03-18)
DX: S39.012A Strain of muscle, fascia and tendon of lower back, initial encounter (principal)
CPT/HCPCS: 99284-25